=== PATIENT | male | born 1945 | race Caucasian/White ===

== ENCOUNTER 2022-08-19 09:25 | Day surgery (SDC) | payer MEDICARE, OTHER ==
[2022-08-15 15:21] VITALS: BMI 35.2
[2022-08-19] MEDS ORDERED: PROPOFOL 40 ML ONE (12:28)
[2022-08-19] MEDS ORDERED: Lidocaine 2% MPF 10 ML AMP (For Epidural Use) ONE (12:28)
[2022-08-19] MEDS ORDERED: PHENYLEPHRINE-NS 100 MCG/ML 10 ML SYRINGE ONE (13:21)
== END 2022-08-19 13:59 | disposition home or self-care (01) ==
LOC: CSHSDC 09:25
PROVIDERS: ATTEND Internal Medicine Gastroenterology
PROC: 0DJD8ZZ Inspection of Lower Intestinal Tract, Via Natural or Artificial Opening Endoscopic (ICD-10-PCS; principal; 2022-08-19)
DX: Z12.12 Encounter for screening for malignant neoplasm of rectum (principal); K62.7 Radiation proctitis; K52.9 Noninfective gastroenteritis and colitis, unspecified; K57.30 Diverticulosis of large intestine without perforation or abscess without bleeding; K64.9 Unspecified hemorrhoids; Z86.010 Personal history of colon polyps; Z85.048 Personal history of other malignant neoplasm of rectum, rectosigmoid junction, and anus; I10 Essential (primary) hypertension; E78.5 Hyperlipidemia, unspecified; I25.10 Atherosclerotic heart disease of native coronary artery without angina pectoris; E11.9 Type 2 diabetes mellitus without complications; F41.9 Anxiety disorder, unspecified; F32.A Depression, unspecified; R41.3 Other amnesia; Z79.84 Long term (current) use of oral hypoglycemic drugs; Z79.4 Long term (current) use of insulin; Z79.02 Long term (current) use of antithrombotics/antiplatelets; Z79.899 Other long term (current) drug therapy
CPT/HCPCS: J2704

== ENCOUNTER 2023-09-08 06:45 | Day surgery (SDC) | payer MEDICARE, OTHER ==
[2023-09-04 13:32] VITALS: BMI 36.6
[2023-09-08] MEDS ORDERED: Albuterol HFA (OR) 200 PUFF INH ONE (07:41)
[2023-09-08] MEDS ORDERED: PROPOFOL 40 ML ONE (07:41)
[2023-09-08] MEDS ORDERED: Lidocaine 4% PF 5 ML AMP ONE (07:42)
[2023-09-08] MEDS ORDERED: PROPOFOL 20 ML ONE (07:48)
[2023-09-08] MEDS ORDERED: Atropine Sulfate 1 mg/10 ml Syringe ONE (08:30)
== END 2023-09-08 08:50 | disposition home or self-care (01) ==
LOC: CSHSDC 06:45
PROVIDERS: ATTEND Internal Medicine Gastroenterology
PROC: 0DJD8ZZ Inspection of Lower Intestinal Tract, Via Natural or Artificial Opening Endoscopic (ICD-10-PCS; principal; 2023-09-08)
DX: K52.9 Noninfective gastroenteritis and colitis, unspecified (principal); K57.30 Diverticulosis of large intestine without perforation or abscess without bleeding; K64.8 Other hemorrhoids; K92.1 Melena; J44.9 Chronic obstructive pulmonary disease, unspecified; E11.40 Type 2 diabetes mellitus with diabetic neuropathy, unspecified; I25.10 Atherosclerotic heart disease of native coronary artery without angina pectoris; I10 Essential (primary) hypertension; Z86.010 Personal history of colon polyps; Z85.038 Personal history of other malignant neoplasm of large intestine; Z88.1 Allergy status to other antibiotic agents; Z79.4 Long term (current) use of insulin; Z79.84 Long term (current) use of oral hypoglycemic drugs; Z79.899 Other long term (current) drug therapy; Z95.5 Presence of coronary angioplasty implant and graft
CPT/HCPCS: 45378; J0461; J2704

== ENCOUNTER 2023-09-26 12:54 | Observation (INO) | payer MEDICARE, OTHER ==
[2023-09-26] MEDS ORDERED: Cefepime 2 GM VIAL ONE (13:27)
[2023-09-26] MEDS ORDERED: Acetaminophen 500 MG TAB ONE (13:27)
[2023-09-26 13:32] LABS: #Eosinphils 0.2 10x3/uL (0.0-0.5); #Monocytes 0.7 10x3/uL (0.0-1.1); #Neutrophils 6.3 10x3/uL (1.5-8.4); %Basophils 0.5 % (0.0-2.0); %Eosinophils 2.1 % (0.0-6.0); %Lymphocytes 6.8 % (18.0-47.0); %Monocytes 9.3 % (0.0-10.0); %Neutrophils 80.5 % (40.0-75.0); Hematocrit 32.8 % (38.8-50.0); Hemoglobin 10.4 g/dL (13.5-17.5); Mean Corpuscular HGB CONC 31.7 g/dL (32.0-36.0); Mean Corpuscular Hemoglobin 31.1 pg (27.0-33.0); Mean Corpuscular Volume 98.2 fl (81.2-95.1); Mean Platelet Volume 9.1 fl (7.4-10.4); Platelet Count 181 10x3/uL (150-450); RBC Distribution Width 16.5 % (11.5-14.5); Red Blood Cell (RBC) Count 3.34 10x6/uL (4.32-5.72); White Blood Cell (WBC) Count 7.8 10x3/uL (3.5-10.5)
[2023-09-26 14:01] LABS: ALT (SGPT) 9 U/L (8-55); AST (SGOT) 24 U/L (5-34); Albumin 4.2 g/dL (3.4-4.8); Alkaline Phosphatase 45 U/L (40-110); Anion Gap 14 mmol/L (10-20); BUN (Urea Nitrogen) 24 mg/dL (8.4-25.7); Bilirubin, Total 0.4 mg/dL (0.2-1.2); Calc. Creatinine Clearance 0 mL/min (70-130); Calcium 8.8 mg/dL (7.8-10.44); Carbon Dioxide 21 mmol/L (23-31); Chloride 104 mmol/L (98-107); Estimated GFR 56; Globulin 3.2 g/dL (2.4-3.5); Glucose 139 mg/dL (83-110); Potassium 4.9 mmol/L (3.5-5.1); Protein, Total 7.4 g/dL (5.8-8.1); Sodium 134 mmol/L (136-145)
[2023-09-26 14:06] LABS: Troponin I Less than 0.010 ng/mL (< 0.028)
[2023-09-26 14:53] LABS: SARS-CoV-2 NAA Rapid Test Not Detected (NotDetected)
[2023-09-26 19:11] LABS: Bilirubin Neg (Negative); Blood, Urine 10 (Negative); Clarity Clear (Clear); Glucose, Urine (Dipstick) >=1000 mg/dL (Negative); Ketone, Urine Negative (Negative); Leukocyte Negative (Negative); Nitrite Negative (Negative); Protein, Urine (Dipstick) 30 mg/dl (Neg-Trace); Specific Gravity, Urine 1.015 (1.005-1.030); Urobilinogen Normal mg/dL (Less than 2)
[2023-09-26] MEDS ORDERED: Calcium Carbonate 500 MG ChewTAB PO PRN (19:25)
[2023-09-26] MEDS ORDERED: Ondansetron PF 4 MG/2 ML Vial IVP PRN (19:25)
[2023-09-26] MEDS ORDERED: Guaifenesin DM 100-10/5 ML UDCUP PO PRN (19:25)
[2023-09-26] MEDS ORDERED: Senokot S 8.6-50 MG TAB PO PRN (19:25)
[2023-09-26] MEDS ORDERED: Acetaminophen 325 MG TAB PO PRN (19:25)
[2023-09-26] MEDS ORDERED: HumaLOG 300 UNITS/3 ML VIAL SC PRN (19:25)
[2023-09-26] MEDS ORDERED: Dextrose 5% in Water 1,000 ML IV PRN (19:25)
[2023-09-26] MEDS ORDERED: Dextrose 50% Abboject 50 ML SYRINGE SLOW IVP PRN (19:25)
[2023-09-26] MEDS ORDERED: Glucagon 1 MG/ML KIT IM PRN (19:25)
[2023-09-26 19:31] LABS: RBC/HPF 0-3 HPF (0-3)
[2023-09-26] MEDS ORDERED: Ipratropium/Albuterol 3 ML NEB NEB PRN (19:31)
[2023-09-26 19:32] LABS: Bacteria/HPF Rare-Few HPF (None Seen); CAUTI Indications for Culture Alt mental st,lethar; Squamous Epithelial None Seen HPF (0-3); Urine Culture Reflex No No; WBC/HPF None Seen HPF (0-3)
[2023-09-26] MEDS ORDERED: Lantus 1000 UNITS/10 ML VIAL SC SCH (22:00)
[2023-09-26] MEDS ORDERED: Tamsulosin HCl 0.4 MG CAP PO SCH (22:00)
[2023-09-26] MEDS ORDERED: Vit A,C & E/Lutein/Minerals Tablet PO SCH (22:00)
[2023-09-26] MEDS ORDERED: Atorvastatin Calcium 20 MG TAB PO SCH (22:00)
[2023-09-26] MEDS ORDERED: Donepezil HCl 5 MG TAB PO SCH (22:00)
[2023-09-26] MEDS ORDERED: Losartan 25 MG TAB PO SCH (22:00)
[2023-09-26] MEDS ORDERED: Sertraline 100 MG TAB PO SCH (22:00)
[2023-09-26] MEDS ORDERED: Melatonin 3 MG TAB PO SCH (22:00)
[2023-09-26] MEDS ORDERED: Ipratropium/Albuterol 3 ML NEB NEB SCH (22:00)
[2023-09-26] MEDS ORDERED: Ranolazine 500 MG ER.TAB PO SCH (22:00)
[2023-09-26] MEDS: Cholestyramine/Aspartame 4 gm Packet PO SCH (22:52)
[2023-09-27 00:20] VITALS: BMI 36.3
[2023-09-27] MEDS: Ipratropium/Albuterol 3 ML NEB NEB SCH ×3 (02:24→13:00)
[2023-09-27 06:00] LABS: #Eosinphils 0.1 10x3/uL (0.0-0.5); #Monocytes 0.8 10x3/uL (0.0-1.1); #Neutrophils 3.9 10x3/uL (1.5-8.4); %Basophils 0.5 % (0.0-2.0); %Eosinophils 1.4 % (0.0-6.0); %Lymphocytes 15.8 % (18.0-47.0); %Neutrophils 67.8 % (40.0-75.0); Hematocrit 29.5 % (38.8-50.0); Hemoglobin 9.2 g/dL (13.5-17.5); Mean Corpuscular HGB CONC 31.2 g/dL (32.0-36.0); Mean Corpuscular Hemoglobin 30.1 pg (27.0-33.0); Mean Corpuscular Volume 96.4 fl (81.2-95.1); Mean Platelet Volume 9.2 fl (7.4-10.4); Platelet Count 157 10x3/uL (150-450); RBC Distribution Width 16.6 % (11.5-14.5); Red Blood Cell (RBC) Count 3.06 10x6/uL (4.32-5.72); White Blood Cell (WBC) Count 5.7 10x3/uL (3.5-10.5)
[2023-09-27] MEDS ORDERED: Mometasone 100 MCG/PUFF (1 INHALER) INH SCH (06:30)
[2023-09-27 07:44] LABS: Anion Gap 15 mmol/L (10-20); BUN (Urea Nitrogen) 19 mg/dL (8.4-25.7); CK (CPK) 114 U/L (30-200); Calc. Creatinine Clearance 92 mL/min (70-130); Calcium 8.4 mg/dL (7.8-10.44); Carbon Dioxide 20 mmol/L (23-31); Chloride 106 mmol/L (98-107); Estimated GFR 65; Glucose 130 mg/dL (83-110); Magnesium 2.1 mg/dL (1.6-2.6); Potassium 4.2 mmol/L (3.5-5.1); Sodium 137 mmol/L (136-145)
[2023-09-27] MEDS ORDERED: metFORMIN 500 MG TAB PO SCH (08:00)
[2023-09-27] MEDS ORDERED: Cyanocobalamin (Vitamin B-12) 1,000 MCG TAB PO SCH (09:00)
[2023-09-27] MEDS ORDERED: Empagliflozin 25 MG TAB PO SCH (09:00)
[2023-09-27] MEDS ORDERED: Carvedilol 6.25 MG TAB PO SCH (09:00)
[2023-09-27] MEDS ORDERED: Lantus 1000 UNITS/10 ML VIAL SC SCH (09:00)
[2023-09-27] MEDS ORDERED: LACTINEX 1 TAB PO SCH (09:00)
[2023-09-27] MEDS ORDERED: Finasteride 5 MG TAB PO SCH (09:00)
[2023-09-27] MEDS ORDERED: Vit A,C & E/Lutein/Minerals Tablet PO SCH (09:00)
[2023-09-27] MEDS ORDERED: Ranolazine 500 MG ER.TAB PO SCH (09:00)
[2023-09-27] MEDS ORDERED: Clopidogrel Bisulfate 75 MG TAB PO SCH (09:00)
[2023-09-27] MEDS: Carbidopa/Levodopa 25-100 mg Tablet PO SCH ×2 (11:13→15:49)
[2023-09-27] MEDS: Cholestyramine/Aspartame 4 gm Packet PO SCH (11:46)
[2023-09-27 12:40] VITALS: BP 146/66; TEMP 98.5
[2023-09-27] MEDS ORDERED: Tamsulosin HCl 0.4 MG CAP PO SCH (21:00)
[2023-09-27] MEDS ORDERED: Atorvastatin Calcium 20 MG TAB PO SCH (21:00)
[2023-09-27] MEDS ORDERED: Losartan 25 MG TAB PO SCH (21:00)
[2023-09-27] MEDS ORDERED: Sertraline 100 MG TAB PO SCH (21:00)
[2023-09-27] MEDS ORDERED: Donepezil HCl 5 MG TAB PO SCH (21:00)
[2023-09-27] MEDS ORDERED: Melatonin 3 MG TAB PO SCH (21:00)
== END 2023-09-27 16:41 | disposition home health service (06) ==
LOC: CSHERS 12:54 → CSHTELE 21:20
PROVIDERS: ADMIT Student in an Organized Health Care Education/Training Program; ATTEND Student in an Organized Health Care Education/Training Program
DX: R33.9 Retention of urine, unspecified (principal); R50.9 Fever, unspecified; R53.1 Weakness; I10 Essential (primary) hypertension; E78.5 Hyperlipidemia, unspecified; I25.10 Atherosclerotic heart disease of native coronary artery without angina pectoris; E66.01 Morbid (severe) obesity due to excess calories; Z68.36 Body mass index [BMI] 36.0-36.9, adult; E11.9 Type 2 diabetes mellitus without complications; J44.9 Chronic obstructive pulmonary disease, unspecified; F32.A Depression, unspecified; G47.33 Obstructive sleep apnea (adult) (pediatric); F41.9 Anxiety disorder, unspecified; Z88.1 Allergy status to other antibiotic agents; Z95.5 Presence of coronary angioplasty implant and graft; Z90.49 Acquired absence of other specified parts of digestive tract; Z87.891 Personal history of nicotine dependence; Z79.4 Long term (current) use of insulin; Z79.84 Long term (current) use of oral hypoglycemic drugs; Z79.899 Other long term (current) drug therapy; W19.XXXA Unspecified fall, initial encounter
CPT/HCPCS: 0240U; 70450; 71045; 80048; 80053; 81001; 82550; 82962 ×2; 83605; 83735; 84145; 84443; 84484; 85025 ×2; 87040; 87086; 93005; 94640 ×3; 94660; 94664; 94760 ×2; 97116; 97530; 36415; 36416; 96372; G0378; J0692; J1650; J1815; J7620

== ENCOUNTER 2025-08-08 08:48 | Inpatient (IN) | payer MEDICARE, OTHER ==
[2025-08-08 09:33] LABS: #Basophils 0.04 10x3/uL (0.0-0.2); #Eosinophils 0.30 10x3/uL (0.0-0.5); #Monocytes 0.63 10x3/uL (0.0-1.1); #Neutrophils 5.27 10x3/uL (1.5-8.4); %Basophils 0.6 % (0.0-2.0); %Eosinophils 4.1 % (0.0-6.0); %Lymphocytes 13.1 % (18.0-47.0); %Monocytes 8.7 % (0.0-10.0); %Neutrophils 72.9 % (40.0-75.0); Hematocrit 30.3 % (38.8-50.0); Hemoglobin 9.3 g/dL (13.5-17.5); Mean Corpuscular Hemoglobin 29.5 pg (27.0-33.0); Mean Corpuscular Volume 96.2 fL (81.2-95.1); Platelet Count 176 10x3/uL (150-450); Red Blood Cell (RBC) Count 3.15 10x6/uL (4.32-5.72); White Blood Cell (WBC) Count 7.23 10x3/uL (3.5-10.5)
[2025-08-08 09:36] LABS: Actual Bicarbonate (HCO3v) 23.8 mEq/L (22-28); Analyzer IN Cardio CS ER; Base Excess -2.2 mEq/L (-2 - +2); Calcium, Ionized (venous) 1.12 mmol/L (1.16-1.32); Chloride (VBG) 104 mmol/L (98-106); Critical Notified By: Udy, RRT; Hematocrit-VBG 31 % (42.0-52.0); Hemoglobin (Hb) 10.5 g/dL (12.6-17.4); Potassium (VBG) 4.47 mmol/L (3.70-5.30); Puncture Site Other Site; RapidComm Collect By LAB; Sodium 141 mmol/L (133-146)
[2025-08-08 09:48] LABS: INR-International Normal Ratio 1.0; PTT 25.7 sec (22.0-33.0); Prothrombin Time 10.7 sec (9.5-12.1)
[2025-08-08 09:53] LABS: ALT (SGPT) 7 U/L (Less than 45); AST (SGOT) 13 U/L (11-34); Albumin 3.4 g/dL (3.1-4.5); Alkaline Phosphatase 44 U/L (40-110); Anion Gap 13 mmol/L (10-20); BUN (Urea Nitrogen) 35 mg/dL (8.4-25.7); Bilirubin, Total 0.3 mg/dL (0.3-1.2); Calc. Creatinine Clearance 0 mL/min (70-130); Calcium 8.3 mg/dL (7.8-10.44); Carbon Dioxide 26 mmol/L (23-31); Chloride 105 mmol/L (98-107); Globulin 3.5 g/dL (2.4-3.5); Glucose 165 mg/dL (83-110); Lipase 27 U/L (8-78); Magnesium 2.0 mg/dL (1.6-2.6); Potassium 4.7 mmol/L (3.5-5.1); Sodium 139 mmol/L (136-145)
[2025-08-08 10:03] LABS: Troponin I 0.428 ng/mL (< 0.028)
[2025-08-08] MEDS ORDERED: Furosemide 40 MG (4 mL) VIAL ONE (10:09)
[2025-08-08] MEDS ORDERED: Aspirin Chewable 81 MG TAB ONE (10:10)
[2025-08-08] MEDS ORDERED: Nitroglycerin 0.4 MG TAB (25 Tab Bottle) SL PRN (12:26)
[2025-08-08] MEDS ORDERED: Calcium Carbonate 500 MG ChewTAB PO PRN (12:29)
[2025-08-08] MEDS ORDERED: Bisacodyl 10 MG SUPP PR PRN (12:29)
[2025-08-08] MEDS ORDERED: Senokot S 8.6-50 MG TAB PO PRN (12:29)
[2025-08-08] MEDS ORDERED: Ondansetron PF 4 MG/2 ML Vial IVP PRN (12:29)
[2025-08-08] MEDS ORDERED: Melatonin 3 MG TAB PO PRN (12:29)
[2025-08-08 12:50] LABS: Troponin I 0.400 ng/mL (< 0.028)
[2025-08-08] MEDS ORDERED: Glucagon 1 MG/ML KIT IM PRN (12:54)
[2025-08-08] MEDS ORDERED: Dextrose 50% Abboject 50 ML SYRINGE SLOW IVP PRN (12:54)
[2025-08-08] MEDS ORDERED: Enoxaparin 100 MG (1 mL) SYRINGE ONE (13:06)
[2025-08-08 13:12] LABS: Iron 22 ug/dL (65-175); Iron Binding Capacity, Total 384 mcg/dL (261-462)
[2025-08-08 13:30] LABS: Ferritin 65.81 ng/mL (22-322)
[2025-08-08] MEDS ORDERED: Iopamidol 300 61% 100 ML VIAL FS ONE (13:48)
[2025-08-08 14:14] VITALS: BMI 35.4
[2025-08-08 15:53] LABS: Troponin I 0.339 ng/mL (< 0.028)
[2025-08-08] MEDS: Furosemide 20 MG (2 mL) VIAL SLOW IVP SCH (17:51)
[2025-08-08] MEDS: Mometasone 200 MCG/Formoterol 5 MCG 60 PUFF INHALER INH SCH (19:15)
[2025-08-08] MEDS: Melatonin 3 MG TAB PO SCH (20:21)
[2025-08-08] MEDS: Losartan 50 MG TAB PO SCH (20:22)
[2025-08-08] MEDS: Sertraline 100 MG TAB PO SCH (20:22)
[2025-08-08] MEDS: Acetaminophen 325 MG TAB PO PRN (20:26)
[2025-08-08 20:52] LABS: Vitamin B12 Greater than 2000 pg/mL (211-911)
[2025-08-08] MEDS ORDERED: Lantus 1000 UNITS/10 ML VIAL SC SCH (21:00)
[2025-08-08] MEDS ORDERED: Melatonin 3 MG TAB PO SCH (21:00)
[2025-08-09] MEDS: Furosemide 20 MG (2 mL) VIAL SLOW IVP SCH (05:25)
[2025-08-09 05:32] LABS: #Basophils Less than 0.03 10x3/uL (0.0-0.2); #Eosinophils Less than 0.03 10x3/uL (0.0-0.5); #Monocytes 0.67 10x3/uL (0.0-1.1); #Neutrophils 7.36 10x3/uL (1.5-8.4); %Basophils 0.1 % (0.0-2.0); %Eosinophils 0.0 % (0.0-6.0); %Lymphocytes 11.2 % (18.0-47.0); %Monocytes 7.4 % (0.0-10.0); %Neutrophils 80.9 % (40.0-75.0); Hematocrit 34.9 % (38.8-50.0); Hemoglobin 10.7 g/dL (13.5-17.5); Mean Corpuscular Hemoglobin 29.0 pg (27.0-33.0); Mean Corpuscular Volume 94.6 fL (81.2-95.1); Platelet Count 214 10x3/uL (150-450); Red Blood Cell (RBC) Count 3.69 10x6/uL (4.32-5.72); White Blood Cell (WBC) Count 9.10 10x3/uL (3.5-10.5)
[2025-08-09 05:46] LABS: Anion Gap 13 mmol/L (10-20); BUN (Urea Nitrogen) 33 mg/dL (8.4-25.7); Calc. Creatinine Clearance 87 mL/min (70-130); Calcium 9.3 mg/dL (7.8-10.44); Carbon Dioxide 30 mmol/L (23-31); Cardiac Risk 5.1 (Less than 4.5); Chloride 101 mmol/L (98-107); Cholesterol 117 mg/dl (< 200 Desired); Glucose 175 mg/dL (83-110); HDL Cholesterol 23 mg/dL (>60 Neg Risk); LDL Cholesterol, Calculated 57 mg/dL; Potassium 4.9 mmol/L (3.5-5.1); Sodium 139 mmol/L (136-145); Triglycerides 186 mg/dL (Less than 150)
[2025-08-09 05:57] LABS: Troponin I 0.344 ng/mL (< 0.028)
[2025-08-09] MEDS: Finasteride 5 MG TAB PO SCH (08:41)
[2025-08-09] MEDS: Cyanocobalamin (Vitamin B-12) 1,000 MCG TAB PO SCH (08:41)
[2025-08-09] MEDS: Lantus 1000 UNITS/10 ML VIAL SC SCH (08:42)
[2025-08-09] MEDS: Aspirin Chewable 81 MG TAB PO SCH (08:42)
[2025-08-09] MEDS: Carvedilol 6.25 MG TAB PO SCH (11:45)
[2025-08-09] MEDS: Sodium Ferric Gluconate 250 MG in Sodium Chloride 0.9% 250 ML 250 ML IVPB SCH (13:45)
[2025-08-09 16:56] VITALS: BP 126/63; TEMP 97.9
[2025-08-09] MEDS ORDERED: Carvedilol 6.25 MG TAB PO SCH (21:00)
[2025-08-10] MEDS ORDERED: CARVEDILOL PHOSPHATE 20 MG PO SCH (09:00)
== END 2025-08-09 17:15 | disposition home or self-care (01) | DRG 291 ==
LOC: CSHERS 08:48 → CSHTELE 12:11
PROVIDERS: ADMIT Internal Medicine; ATTEND Physician Assistant
DX: I11.0 Hypertensive heart disease with heart failure (principal); I50.43 Acute on chronic combined systolic (congestive) and diastolic (congestive) heart failure; J96.01 Acute respiratory failure with hypoxia; C20 Malignant neoplasm of rectum; F02.84 Dementia in other diseases classified elsewhere, unspecified severity, with anxiety; G20.A1 Parkinson's disease without dyskinesia, without mention of fluctuations; F02.80 Dementia in other diseases classified elsewhere, unspecified severity, without behavioral disturbance, psychotic disturbance, mood disturbance, and anxiety; G31.83 Neurocognitive disorder with Lewy bodies; E78.5 Hyperlipidemia, unspecified; I5A Non-ischemic myocardial injury (non-traumatic); J30.2 Other seasonal allergic rhinitis; E11.40 Type 2 diabetes mellitus with diabetic neuropathy, unspecified; N40.0 Benign prostatic hyperplasia without lower urinary tract symptoms; I25.10 Atherosclerotic heart disease of native coronary artery without angina pectoris; Z99.81 Dependence on supplemental oxygen; Z79.4 Long term (current) use of insulin; Z90.49 Acquired absence of other specified parts of digestive tract; Z98.890 Other specified postprocedural states; Z98.61 Coronary angioplasty status; Z87.891 Personal history of nicotine dependence; Z82.49 Family history of ischemic heart disease and other diseases of the circulatory system; Z88.1 Allergy status to other antibiotic agents; Z86.73 Personal history of transient ischemic attack (TIA), and cerebral infarction without residual deficits; Z79.899 Other long term (current) drug therapy; Z79.84 Long term (current) use of oral hypoglycemic drugs
CPT/HCPCS: 36415; 36416; 71045; 71275; 80048; 80053; 80061; 82607; 82728; 82805; 83036; 83540; 83550; 83605; 83690; 83735; 83880; 84484; 85025; 85610; 85730; 87040; 87428; 93005; 93010; 93306; 94640; 94760; 94762; 96372; 96374; 96375; J1650; J1815; J1940; J2916; J2919; J7050; Q9967